=== PATIENT | male | born 1930 | race Caucasian/White ===

== ENCOUNTER 2018-06-07 20:17 | Emergency (ER) | payer OTHER ==
[~2018-06-07 20:17] MED LIST: ACIPHEX; ASPIR 8181 MG PO; BAY PO; CLINDAMYCIN HC300 MG PO; COL100 PO; FER300 PO; FLO4 PO; FUROSEMIDE20 MG PO; LAC PO; LASIX40 MG PO; LEVAQUIN750 MG PO; LEVOTHYROXINE PO; LEVOTHYROXINE0.15 M2 PO; LEXAPRO; LISINOPRIL2.5 MG PO; LORAZEPAM0.5 MG PO; METOPROLOL TART25 M1 PO; NAMENDA10 M2 PO; NUVIGIL; NUVIGIL150 M1 PO; PLA75; PLAVIX75 MG PO; PRO40 PO; SYN25; XARELTO10 M1 PO; XARELTO20 M1 PO; ZES5 PO; ZOCOR40 MG PO
[2018-06-07 20:29] VITALS: Ht 170.2 cm
[2018-06-07 21:17] LABS: BASOPHIL % 0.4 % (0-2); PLATELET COUNT 180 x10^3mcL (130-400)
[2018-06-07 21:18] LABS: RED CELL DISTRIBUTION WIDTH 14.9 % (11.5-14.5)
[2018-06-07 21:27] LABS: CALCIUM 9.1 mg/dL (8.5-10.1); CARBON DIOXIDE 28.8 mmol/L (21-32); CHLORIDE SERUM 104 mmol/L (98-107); GLUCOSE SERUM 97 mg/dL (74-106); POTASSIUM SERUM 3.8 mmol/L (3.5-5.1); SODIUM SERUM 140 mmol/L (136-145)
[2018-06-07 21:32] LABS: ALBUMIN 2.9 g/dL (3.4-5.0); ALKALINE PHOSPHATASE 101 U/L (46-116); ALT/SGPT 12 U/L (16-63); AST/SGOT 20 U/L (15-37); BILIRUBIN TOTAL 2.1 mg/dL (0.20-1.00); TOTAL PROTEIN, SERUM 6.8 g/dL (6.4-8.2)
[2018-06-07 23:13] LABS: microscopic required? YES; urine erythrocyte TRACE (NEGATIVE)
[2018-06-08 04:13] VITALS: BP 127/72
== END 2018-06-08 04:14 | disposition short-term general hospital (02) ==
LOC: ED 20:17
PROVIDERS: Emergency Medicine
DX: S70.11XA Contusion of right thigh, initial encounter (principal); S90.01XA Contusion of right ankle, initial encounter; L03.115 Cellulitis of right lower limb; I11.0 Hypertensive heart disease with heart failure; K21.9 Gastro-esophageal reflux disease without esophagitis; J44.9 Chronic obstructive pulmonary disease, unspecified; I50.9 Heart failure, unspecified; F03.90 Unspecified dementia, unspecified severity, without behavioral disturbance, psychotic disturbance, mood disturbance, and anxiety; Z88.0 Allergy status to penicillin; Z88.7 Allergy status to serum and vaccine; W19.XXXA Unspecified fall, initial encounter; Y93.89 Activity, other specified; Y92.008 Other place in unspecified non-institutional (private) residence as the place of occurrence of the external cause; Y99.8 Other external cause status
CPT/HCPCS: J0696; J2270; J2405; Q0092

== ENCOUNTER 2018-12-02 22:39 | Emergency (ER) | payer OTHER ==
[~2018-12-02] VITALS: Ht 175.3 cm; Wt 86.2 kg
[2018-12-02 22:55] VITALS: Ht 175.3 cm; Wt 86.2 kg
[2018-12-02 23:44] LABS: BASOPHIL % 0.5 % (0-2); PLATELET COUNT 142 x10^3mcL (130-400)
[2018-12-02 23:47] LABS: RED CELL DISTRIBUTION WIDTH 15.8 % (11.5-14.5)
[2018-12-02 23:51] LABS: CALCIUM 9.2 mg/dL (8.5-10.1); CARBON DIOXIDE 29.1 mmol/L (21-32); CHLORIDE SERUM 106 mmol/L (98-107); GLUCOSE SERUM 90 mg/dL (74-106); POTASSIUM SERUM 4.2 mmol/L (3.5-5.1); SODIUM SERUM 141 mmol/L (136-145)
[2018-12-02 23:58] LABS: ALBUMIN 3.3 g/dL (3.4-5.0); ALKALINE PHOSPHATASE 87 U/L (46-116); ALT/SGPT 12 U/L (16-63); AMYLASE 98 U/L (25-115); AST/SGOT 16 U/L (15-37); BILIRUBIN TOTAL 1.4 mg/dL (0.20-1.00); LIPASE 85 IU/L (73-393); TOTAL PROTEIN, SERUM 6.4 g/dL (6.4-8.2)
[2018-12-03] MEDS ORDERED: SYNTHROID0.05 MG PO (00:32)
[2018-12-03] MEDS ORDERED: AMIODARONE H50 MG/M1 IV (00:32)
[2018-12-03 03:22] VITALS: BP 139/104
== END 2018-12-03 03:22 | disposition home or self-care (01) ==
LOC: ED 22:39
PROVIDERS: Emergency Medicine
DX: R19.7 Diarrhea, unspecified (principal); I11.0 Hypertensive heart disease with heart failure; I50.9 Heart failure, unspecified; J44.9 Chronic obstructive pulmonary disease, unspecified; K21.9 Gastro-esophageal reflux disease without esophagitis; Z95.0 Presence of cardiac pacemaker; Z88.0 Allergy status to penicillin; Z91.048 Other nonmedicinal substance allergy status
CPT/HCPCS: 83880; J1940; Q0092

== ENCOUNTER 2019-07-11 09:40 | Inpatient (IN) | payer OTHER ==
[~2019-07-11] VITALS: Ht 175.3 cm; Wt 84.8 kg
[~2019-07-11 09:40] MED LIST changes: +AMIODARONE H50 MG/M1 IV; +SYNTHROID0.05 MG PO
[2019-07-11 09:49] VITALS: Ht 175.3 cm; Wt 84.8 kg
[2019-07-11] MEDS ORDERED: LASIX20 MG PO (11:07)
[2019-07-11] MEDS ORDERED: COREG12.5 MG GT (11:07)
[2019-07-11] MEDS ORDERED: XARELTO15 M1 PO (11:07)
[2019-07-11 11:38] LABS: microscopic required? YES; urine erythrocyte 3+ (NEGATIVE)
[2019-07-11 11:40] LABS: CALCIUM 9.8 mg/dL (8.5-10.1); CHLORIDE SERUM 104 mmol/L (98-107); GLUCOSE SERUM 95 mg/dL (74-106); POTASSIUM SERUM 3.7 mmol/L (3.5-5.1); SODIUM SERUM 140 mmol/L (136-145)
[2019-07-11 11:45] LABS: ALKALINE PHOSPHATASE 62 U/L (46-116); ALT/SGPT 15 U/L (16-63); AST/SGOT 21 U/L (15-37); BILIRUBIN TOTAL 1.8 mg/dL (0.20-1.00); TOTAL PROTEIN, SERUM 6.4 g/dL (6.4-8.2)
[2019-07-11 11:46] LABS: ALBUMIN 3.3 g/dL (3.4-5.0)
[2019-07-11 11:54] LABS: BASOPHIL % 0.5 % (0-2); PLATELET COUNT 135 x10^3mcL (130-400)
[2019-07-11 12:00] LABS: RED CELL DISTRIBUTION WIDTH 15.3 % (11.5-14.5)
[2019-07-11 14:16] LABS: T3 TOTAL 0.85 ng/mL
[2019-07-11 14:46] VITALS: BP 160/77
[2019-07-11 14:55] LABS: CHOLESTEROL/HDL RATIO 2.9
[2019-07-11 15:02] LABS: FREE T4 0.46 ng/dL (0.76-1.46)
[2019-07-11 15:03] LABS: T4(THYROXINE) 3.3 ug/dL (4.7-13.3)
[2019-07-11 20:23] VITALS: BP 135/66
[2019-07-12 05:03] VITALS: BP 109/52
[2019-07-12 06:32] LABS: BASOPHIL % 0.3 % (0-2); PLATELET COUNT 134 x10^3mcL (130-400)
[2019-07-12 06:51] LABS: RED CELL DISTRIBUTION WIDTH 15.1 % (11.5-14.5)
[2019-07-12 07:27] LABS: CALCIUM 9.6 mg/dL (8.5-10.1); CARBON DIOXIDE 28.5 mmol/L (21-32); CHLORIDE SERUM 104 mmol/L (98-107); CREATININE SERUM 1.1 mg/dL (0.7-1.3); GLUCOSE SERUM 102 mg/dL (74-106); PHOSPHOROUS 3.3 mg/dL (2.5-4.9); POTASSIUM SERUM 3.9 mmol/L (3.5-5.1); SODIUM SERUM 140 mmol/L (136-145)
[2019-07-12 09:50] VITALS: BP 112/50
[2019-07-12 11:33] LABS: microscopic required? YES; urine erythrocyte 3+ (NEGATIVE)
[2019-07-12 17:27] VITALS: BP 99/61
[2019-07-12 20:38] VITALS: BP 113/61
[2019-07-13] VITALS (7 sets, daily range): BP systolic 105–125; BP diastolic 45–81
[2019-07-13 06:40] LABS: BASOPHIL % 0.3 % (0-2)
[2019-07-13 07:00] LABS: PLATELET COUNT 119 x10^3mcL (130-400); RED CELL DISTRIBUTION WIDTH 15.2 % (11.5-14.5)
[2019-07-13 07:10] LABS: CALCIUM 9.4 mg/dL (8.5-10.1); CARBON DIOXIDE 29.4 mmol/L (21-32); CHLORIDE SERUM 105 mmol/L (98-107); CREATININE SERUM 1.3 mg/dL (0.7-1.3); GLUCOSE SERUM 81 mg/dL (74-106); MAGNESIUM 2.1 mg/dL (1.8-2.4); POTASSIUM SERUM 3.5 mmol/L (3.5-5.1); SODIUM SERUM 140 mmol/L (136-145)
[2019-07-13] MEDS ORDERED: SYN5 PO (17:55)
[2019-07-13] MEDS ORDERED: FLO4 PO (17:55)
== END 2019-07-13 20:35 | disposition home or self-care (01) | DRG 640 ==
LOC: ED 09:40 → MU 13:18
PROVIDERS: Emergency Medicine; ADMIT Internal Medicine
DX: E86.0 Dehydration (principal); N17.0 Acute kidney failure with tubular necrosis; N39.0 Urinary tract infection, site not specified; I50.22 Chronic systolic (congestive) heart failure; I11.0 Hypertensive heart disease with heart failure; J44.9 Chronic obstructive pulmonary disease, unspecified; E11.9 Type 2 diabetes mellitus without complications; K21.9 Gastro-esophageal reflux disease without esophagitis; Z88.0 Allergy status to penicillin; Z88.7 Allergy status to serum and vaccine; Z91.048 Other nonmedicinal substance allergy status; Z95.0 Presence of cardiac pacemaker; Z95.5 Presence of coronary angioplasty implant and graft; Z81.8 Family history of other mental and behavioral disorders; Z83.3 Family history of diabetes mellitus; Z82.49 Family history of ischemic heart disease and other diseases of the circulatory system; Z79.84 Long term (current) use of oral hypoglycemic drugs; Z23 Encounter for immunization
CPT/HCPCS: 82962; 83880; 84439; 90732; 97112-GP; G0378; J1940; J1956; J7050; Q0092